=== PATIENT | female | born 1985 | race Caucasian/White ===

== ENCOUNTER → 2018-10-25 | Outpatient (CLI) | payer OTHER ==
[~2018-10-25] MED LIST: AMOCLA875 PO; AZIT500 PO; CEPH500 PO; CIPR500 PO; EPIN.3I IM; ERYT.5TO RIGHTEYE; Epipen0.3 MG/0.3 IM; FLUT.05NI; FLUT110OIA INH; HYDACE5 PO; LEVFLO500 PO; OXYACE5T PO; PHENA200 PO; PRED20 PO; PROCODE120 PO; PROM25 PO; Percocet 5-3251 EACH PO; Pyridium200 MG PO; RXPHEN200 PO; RXPROCODSY PO; RXSULTRIDS PO; SULTRIDS PO; [UNRECOGNIZED DRUG - REMARK]
[2018-10-25 13:54] LABS: Source, Urine Clean Catch
[2018-10-25 15:02] LABS: Appearance, Urine Hazy (Clear); Bilirubin, Urine Neg (Neg); Blood, Urine 1+ (Neg); Color, Urine Yellow (P-Yellow); Glucose Qualitative, Urine Neg (Neg); Ketones, Urine Neg (Neg); Leukocyte Esterase, Urine Neg (Neg); Nitrite, Urine Neg (Neg); Protein, Urine Neg (Neg); Urobilinogen, Urine NORM (Normal)
[2018-10-25 15:16] LABS: Bacteria Few /hpf; Red Blood Cells, Urine 0-2 /hpf (0-2); Squamous Epithelial Cells Few /hpf (Few); White Blood Cells, Urine 0-2 /hpf (0-5)
== END | disposition home or self-care (01) ==
LOC: LAB SHORT 13:50 → LAB 13:50
PROVIDERS: Family Medicine
DX: R30.0 Dysuria (principal)
CPT/HCPCS: 81001

== ENCOUNTER 2019-01-20 06:02 | Day surgery (SDC) | payer OTHER ==
[~2019-01-20] VITALS: Ht 162.6 cm; Wt 125.9 kg
[~2019-01-20 06:02] MED LIST changes: +ALBU90OI61 INH; +ALLEGRA ALLERG180 M1 PO; +BUPR150T2 PO; +EPINEPHRIN0.3 MG/0.3 IM; +Imitrex50 MG PO
[2019-01-20] MEDS ORDERED: Flonase 0.05% N16 GM INH (07:12)
[2019-01-20] MEDS ORDERED: IBUP400 PO (07:14)
--- NOTE | 2019-01-20 09:17 | NUR ---
01/20/19 0917 Madison Kohli STRIDOR WAS NOTED ON ARRIVAL TO PACU JAW THRUST AND O2 APPLIED, QUIT AFTER MANJIT 1 MINUTE
--- NOTE | 2019-01-20 11:07 | NUR ---
01/20/19 1107 Madison Kohli PT WAS DC'D HOME W/NAUSEA RESOLVED. PAIN 2-3/10 AND TOLERABLE RX FOR PERCOCET AND MOTRIN W/INSTRUCTIONS FOR USE. WAS INCONTINENT OF URINE WHEN VOMITING. [facility]ARE DONE AND PAD AND UNDERWEAR CHNAGED. TO CAR VIA W/C SBA X1 W/O CO NAUSEA. MADONNA ICE CHIPS PRIIOR TO DC
== END 2019-01-20 10:50 | disposition home or self-care (01) ==
LOC: ORSCSDS 06:02
PROVIDERS: Obstetrics & Gynecology
PROC: 0UT14ZZ Resection of Left Ovary, Percutaneous Endoscopic Approach (ICD-10-PCS; principal; 2019-01-20 07:30)
PROC: 0UT74ZZ Resection of Bilateral Fallopian Tubes, Percutaneous Endoscopic Approach (ICD-10-PCS; principal; 2019-01-20 07:30)
DX: D27.1 Benign neoplasm of left ovary (principal); N89.9 Noninflammatory disorder of vagina, unspecified; J45.909 Unspecified asthma, uncomplicated; G47.33 Obstructive sleep apnea (adult) (pediatric); Z79.899 Other long term (current) drug therapy
CPT/HCPCS: 88305; J0330; J1885; J2250; J2405; J2765; J3010

== ENCOUNTER → 2021-10-06 | Outpatient (CLI) | payer OTHER ==
[~2021-10-06] MED LIST changes: +Flonase 0.05% N16 GM INH; +IBUP400 PO
[2021-10-07 10:16] LABS: Candida species (DNA Probe) Negative (NEGATIVE); G. vaginalis (DNA Probe) Negative (NEGATIVE); T. vaginalis (DNA Probe) Negative (NEGATIVE)
== END ==
LOC: LAB 17:48 → LAB SHORT 17:48
PROVIDERS: Physician Assistant
DX: N76.0 Acute vaginitis (principal); R30.0 Dysuria
CPT/HCPCS: 87086; 87147; 87480; 87510; 87660

== ENCOUNTER → 2022-05-04 | Outpatient (CLI) | payer OTHER | END | disposition home or self-care (01) | LOC: LAB SHORT 09:30 → LAB 09:30 | DX: R30.0 Dysuria (principal) | CPT/HCPCS: 87086; 87147 ==

== ENCOUNTER → 2024-02-01 | Outpatient (CLI) | payer OTHER | LOC: LAB 12:00 → LAB SHORT 12:00 | DX: R30.0 Dysuria (principal) | CPT/HCPCS: 87077; 87086; 87186 ==

== ENCOUNTER 2024-08-06 18:28 | Emergency (ER) | payer OTHER ==
[~2024-08-06] VITALS: Ht 162.6 cm; Wt 113.4 kg
[~2024-08-06 18:28] MED LIST changes: -ONDA4ODT MM
[2024-08-06 19:11] LABS: BASOPHILS ABSOLUTE AUTO 0.04 K/mm3 (0.00-0.23); BASOPHILS PERCENT AUTO 1 % (0-2); EOSINOPHILS ABSOLUTE AUTO 0.12 K/mm3 (0.00-0.68); EOSINOPHILS PERCENT AUTO 1 % (0-6); Hematocrit 41.5 % (33.0-51.0); Hemoglobin 13.6 g/dL (11.5-16.0); IMMATURE GRAN ABSOLUTE AUTO 0.03 K/mm3 (0.00-0.10); IMMATURE GRAN PERCENT AUTO 0 % (0-1); LYMPHOCYTES ABSOLUTE AUTO 2.28 K/mm3 (0.84-5.20); LYMPHOCYTES PERCENT AUTO 26 % (21-46); MONOCYTES ABSOLUTE AUTO 0.61 K/mm3 (0.16-1.47); MONOCYTES PERCENT AUTO 7 % (4-13); Mean Corpuscular HGB 27.2 pg (26.0-34.0); Mean Corpuscular HGB Conc 32.8 g/dL (31.5-36.5); Mean Corpuscular Volume 83 fL (80-100); Mean Platelet Volume 10.4 fL (9.1-12.4); NEUTROPHILS ABSOLUTE AUTO 5.68 K/mm3 (1.96-9.15); NEUTROPHILS PERCENT AUTO 65 % (41-73); Platelet Count 352 K/mm3 (150-400); RDW Coefficient Variation 13.2 % (11.7-14.2); RDW Standard Deviation 39.8 fL (35.1-46.3); White Blood Cell Count 8.76 K/mm3 (4.00-11.30)
[2024-08-06 19:29] LABS: Albumin, Blood 3.8 g/dL (3.4-5.0); Albumin/Globulin Ratio 0.9 (0.8-1.8); Bilirubin, Total 0.3 mg/dL (0.1-1.0); Bun/Creatinine Ratio 16.7 (12.0-20.0); Calcium, Blood 9.1 mg/dL (8.5-10.1); Creatinine, Blood 0.78 mg/dL (0.40-1.00); Globulin, Blood 4.3 g/dL (2.2-4.0); Potassium, Blood 4.1 mmol/L (3.5-5.5); Total Protein, Blood 8.1 g/dL (6.4-8.2)
[2024-08-06 21:53] LABS: Source, Urine Clean Catch
[2024-08-06 22:04] LABS: Appearance, Urine Hazy (Clear); Bilirubin, Urine Neg (Neg); Blood, Urine Neg (Neg); Color, Urine Yellow (P-Yellow); Glucose Qualitative, Urine Neg (Neg); Ketones, Urine Neg (Neg); Leukocyte Esterase, Urine 2+ (Neg); Nitrite, Urine Neg (Neg); Protein, Urine 1+ (Neg); Specific Gravity, Urine 1.025 (1.003-1.022); Urobilinogen, Urine NORM (Normal)
[2024-08-06 22:07] VITALS: BP 169/106
[2024-08-06] MEDS ORDERED: Ondansetron HCl 2 MG / ML 2ML Vial IV ONE (22:10)
[2024-08-06 22:19] LABS: Bacteria Many /hpf; Red Blood Cells, Urine 0-2 /hpf (0-2); Squamous Epithelial Cells Many /hpf (Few)
[2024-08-06] MEDS ORDERED: Lactated Ringer's 1,000 ML IV ONE (22:55)
[2024-08-06] MEDS ORDERED: Ketorolac Tromethamine 15mg Vial IV ONE (22:55)
[2024-08-06] MEDS ORDERED: Mag Hydrox/AL Hydrox/Simeth 30 ML UDC PO ONE (23:10)
[2024-08-07] MEDS ORDERED: CEPH500 PO (00:04)
[2024-08-07] MEDS ORDERED: ONDA4ODT MM (00:04)
[2024-08-07] MEDS ORDERED: RX Prepack 2 Tabs Ondansetron ODT 4MG UD ONE (00:05)
[2024-08-07] MEDS ORDERED: Cephalexin Monohydrate 500 MG Cap PO ONE (00:05)
== END 2024-08-07 00:41 | disposition home or self-care (01) ==
LOC: ER 18:28
PROVIDERS: Student in an Organized Health Care Education/Training Program
DX: N30.00 Acute cystitis without hematuria (principal); N83.201 Unspecified ovarian cyst, right side; E87.1 Hypo-osmolality and hyponatremia; E11.9 Type 2 diabetes mellitus without complications; I10 Essential (primary) hypertension; K58.9 Irritable bowel syndrome, unspecified; Z87.891 Personal history of nicotine dependence; Z88.2 Allergy status to sulfonamides; Z88.1 Allergy status to other antibiotic agents; Z91.038 Other insect allergy status; Z79.899 Other long term (current) drug therapy
CPT/HCPCS: 74177; 80053; 81001; 83690; 85025; 87077; 87086; 87186; 93005; 93010; 96361; 96374-59; 96375; 99284-25; A9270; J1885; J2405; J7120; Q9967

== ENCOUNTER → 2024-08-06 | Outpatient (CLI) | payer OTHER ==
[~2024-08-06] MED LIST changes: +ONDA4ODT MM
== END ==
LOC: LAB SHORT 16:15 → LAB 16:15
DX: R30.0 Dysuria (principal)
CPT/HCPCS: 87077; 87086; 87186